=== PATIENT | female | born 1990 | race African-American/Black ===

== ENCOUNTER 2024-01-29 08:39 | Emergency (ER) | payer OTHER, SELFPAY ==
[~2024-01-29] VITALS: Ht 175.3 cm; Wt 96.3 kg
[2024-01-29 09:05] VITALS: BP 152/104; PULSE 84; RESP 16; TEMP 98.4; O2SAT 98
[2024-01-29] MEDS: methylPREDNISolone SOD SUCC 125 MG/2 ML VL IV ONE (09:05)
[2024-01-29] MEDS: SODIUM CHLORIDE 0.9% 1,000 ML IV ONE (09:05)
[2024-01-29 09:14] LABS: Basophils # (auto) 0 10 ^3/uL (0-0.2); Basophils % (auto) 0.6 % (0.0-2.0); Eosinophils # (auto) 0.2 10 ^3/uL (0-0.8); Eosinophils % (auto) 2.4 % (0.0-7.0); Hematocrit 37.2 % (36.0-46.0); Hemoglobin 12.4 g/dL (12.2-16.2); Lymphocytes # (auto) 1.9 10 ^3/uL (0.4-5.4); Lymphocytes % (auto) 22.4 % (10.0-50.0); Mean Corpuscular Hemoglobin 31.9 pg (28.0-32.0); Mean Corpuscular Hgb Conc. 33.5 g/dL (32.0-36.0); Mean Corpuscular Volume 95.3 fL (80.0-100.0); Monocytes # (auto) 0.4 10 ^3/uL (0-1.3); Monocytes % (auto) 4.4 % (0.0-12.0); Neutrophils % (auto) 70.2 % (37.0-80.0); Platelet Count (auto) 434 10^3/uL (140-450); Red Cell Distribution Width 13.3 % (11.8-14.3); White Blood Cell 8.6 10^3/uL (4.4-10.8)
[2024-01-29 09:29] LABS: Alanine Aminotransferase 14 U/L (7-40); Albumin 4.1 g/dL (3.2-4.8); Alkaline Phosphatase 93 U/L (46-116); Anion Gap 4 (5-15); Aspartate Aminotransferase 11 U/L (13-40); BUN/Creatinine Ratio 9.5 (10.0-20.0); Bilirubin, Total 0.2 mg/dL (0.2-1.0); Blood Urea Nitrogen 11 mg/dL (9-23); Calcium 9.4 mg/dL (8.7-10.4); Carbon Dioxide 29 mmol/L (20-31); Chloride 105 mmol/L (98-107); Glucose 190 mg/dL (74-106); Potassium 3.9 mmol/L (3.5-5.1); Sodium 138 mmol/L (136-145); Total Protein 6.5 g/dL (5.7-8.2)
== END 2024-01-29 10:07 | disposition left against medical advice (07) ==
LOC: EDBD 08:39 → ER 08:39
DX: T78.49XA Other allergy, initial encounter (principal); Z88.2 Allergy status to sulfonamides; Z88.8 Allergy status to other drugs, medicaments and biological substances; X58.XXXA Exposure to other specified factors, initial encounter
CPT/HCPCS: 36415; 80053; 85025; 96361; 96374; 99283; J2919; J7030